=== PATIENT | male | born 1985 | race Caucasian/White ===

== ENCOUNTER 2017-02-09 16:35 | Inpatient (IN) | payer SELFPAY ==
--- NOTE | ~2017-02-09 | CT16 ---
[facility] A Service of [facility] / [facility] RADIOLOGY TEXT RESULTS PATIENT: BEAR MURILLO LOCATION: [place] [address] : [birth year] UNIT #: [id number] AGE: [address]: Emily Monae MD SEX: M ORDER DR: [id number] [place] [id number] I MR#: [id number] Acc #: [id number] NAME: BEAR MURILLO. : 1985 SEX: M STUDY DATE/TIME: 02/09/2017 17:53 UNIT: SEDOF ROOM: [facility] STUDY DESCRIPTION: CT Angio Chest for PE Attending Physician: Blaze Carrillo M.D. Ordering Physician: Physician Non-Staff Primary Care Physician: Primary Care Physician No MEDICAL IMAGING REPORT This report is preliminary unless electronic signature is present. EXAM Chest CTA 02/09 INDICATIONS Chest pain and dizziness that started at 8:00 a.m. this morning. Bilateral arm numbness. TECHNIQUE Axial images were obtained through the chest following IV contrast administration. 3-D reformats were obtained. No comparison CT scan. The CT exam was performed with one or more of the following radiation dose reduction techniques: automatic exposure control, adjustment of mA and/or kV according to patient size, and iterative reconstruction. FINDINGS There is no pulmonary embolism or aortic dissection. There is no pleural or pericardial effusion. There is no adenopathy. There is some calcified granulomatous lymph nodes in the right hilum and right paratracheal space. The lungs are clear except for a right upper lobe calcified granuloma. The upper abdomen is unremarkable. IMPRESSION No pulmonary embolism or aortic dissection. No active disease in the chest. Dictated by... Mahendra Cano Jr., M.D. THIS IS AN ELECTRONICALLY VERIFIED REPORT [facility] A Service [facility] RADIOLOGY TEXT RESULTS PATIENT: BEAR MURILLO LOCATION: [facility] : [birth year] UNIT #: [id number] AGE: [address]: Emily Monae MD SEX: M ORDER DR: Mahendra Cano Jr., M.D. at 02/10/2017 1:41 PM SMITHA/jt TD: 02/10/2017 10:05 JOB #: [id number] MEDICAL IMAGING REPORT Page 1 of 1
--- NOTE | ~2017-02-09 | DS ---
Unit #: [id number] #: [id number] Patient: BEAR MURILLO [id number] [address] [address] [id number] I MR#: [id number] NAME: BEAR MURILLO ROOM: 559 Age: 31 Sex: M Admission Date: 02/09/2017 : 1985 Discharge Date: 02/12/2017 Attending Physician: Emily Monae M.D. DISCHARGE SUMMARY PRIMARY CARE PROVIDER None. PRINCIPAL DIAGNOSES 1. Naj-YT-nwfomgw elevation myocardial infarction. 2. Coronary artery disease with 100% stenosis of right coronary artery, status post stenting and 60% to 70% stenosis of the mid left circumflex. 3. Hyperlipidemia. 4. Reactive leukocytosis, resolved. 5. Reperfusion premature ventricular contractions, resolved. 6. Obesity. CONSULTANTS Dr. Boone, cardiology. PROCEDURES 1. Left-sided heart catheterization on 02/10/2017 with normal left ventricular function. Left main and LAD were normal. Left circumflex had 60% to 70% stenosis in the mid-region and RCA had 100% stenosis, status post stent placement. 2. Chest x-ray on 02/09/2017, which was normal. 3. CT angiogram of the chest on 02/09/2017, which was negative for PE or dissection. No other acute findings noted. CLINICAL HISTORY AND HOSPITAL COURSE Mr. Murillo is a very nice 31-year-old male with a family history of premature coronary artery disease, who presents to the emergency department with a several-day history of chest pain. Please refer to H and P for further details. EKG in the emergency department was unremarkable. However, initial troponin was elevated at 1.10 consistent with NSTEMI. The patient was placed on appropriate medical therapy and subsequently admitted. Dr. Boone was consulted. The following morning, troponin increased to 4.69. The patient subsequently underwent heart catheterization and stenting of the right coronary artery. Post-procedure, the patient initially did have some significant PVCs secondary to reperfusion, but this has resolved. He is now chest pain free. Plan is to treat medically for the next 6 to 8 weeks and he will have an outpatient Cardiolite to determine whether stenting of the lesion of the mid-left circumflex is necessary. The patient did have significant hyperlipidemia with an LDL of 184 and has Unit #: [id number] #: [id number] Patient: BEAR MURILLO been placed on statin therapy. The patient has otherwise remained stable. He is not diabetic with a hemoglobin A1c of 5.3 and he has been counseled regarding diet. He has also had cardiac rehab arranged. The patient was also placed on lisinopril due to his recent NSTEMI, but unfortunately developed some recurrent hypotension. I have decreased dose of lisinopril and this will have to be followed up closely as an outpatient. DISCHARGE CONDITION Stable. DISCHARGE STATUS Discharged to home. DISCHARGE MEDICATIONS Lipitor 80 mg at bedtime; lisinopril 5 mg half a tablet p.o. daily; aspirin 81 mg daily; Brilinta 90 mg b.i.d. DISCHARGE INSTRUCTIONS The patient was instructed to follow a heart healthy diet. He can increase his activity as tolerated. FOLLOWUP The patient will follow up with Dr. Boone as instructed and again plans for Cardiolite in approximately 6 to 8 weeks to determine the need for stenting of the left circumflex lesion. He will need to follow up with lipid panel in 3 months as well. Dictated by... Alice Valdez/bear TD: 02/13/2017 03:56 JOB #: [id number] DISCHARGE SUMMARY Page 1 of 1 X Emily Monae MD X DISCHARGE SUMMARY
--- NOTE | ~2017-02-09 | EKG ---
PATIENT: BEAR MURILLO UNIT #: [id number] Ventricular Rate: 62 BPM Atrial Rate: 62 BPM P-R Interval: 154 ms QRS Duration: 90 ms Q-T Interval: 392 ms QTC Calculation(Bezet): 397 ms P [place]: 25 degrees Calculated R [place]: 41 degrees Calculated T [place]: 10 degrees Diagnosis Line: Normal sinus rhythm with sinus arrhythmia Diagnosis Line: Normal ECG Diagnosis Line: When compared with ECG of 10-FEB-2017 13:30, Diagnosis Line: (unconfirmed) Diagnosis Line: Inverted T waves have replaced nonspecific T wave Diagnosis Line: abnormality in Inferior leads Diagnosis Line: Confirmed by JANY WILBURN MD ([id number]) on 02/12/2017 Diagnosis Line: 7:43:45 AM INTERPRETING MD: COSMO MILLER
--- NOTE | ~2017-02-09 | EKG ---
PATIENT: BEAR MURILLO UNIT #: [id number] Ventricular Rate: 80 BPM Atrial Rate: 80 BPM P-R Interval: 158 ms QRS Duration: 88 ms Q-T Interval: 368 ms QTC Calculation(Bezet): 424 ms P [place]: 38 degrees Calculated R [place]: 63 degrees Calculated T [place]: 35 degrees Diagnosis Line: Normal sinus rhythm Diagnosis Line: Inferior infarct Posterior infarct Diagnosis Line: Abnormal ECG Diagnosis Line: When compared with ECG of 10-FEB-2017 07:50, Diagnosis Line: No significant change was found Diagnosis Line: Confirmed by JANY WILBURN MD ([id number]) on 02/12/2017 Diagnosis Line: 7:39:53 AM INTERPRETING MD: COSMO MILLER
--- NOTE | ~2017-02-09 | EKG ---
PATIENT: BEAR MURILLO UNIT #: [id number] Ventricular Rate: 71 BPM Atrial Rate: 71 BPM P-R Interval: 158 ms QRS Duration: 90 ms Q-T Interval: 384 ms QTC Calculation(Bezet): 417 ms P [place]: 33 degrees Calculated R [place]: 63 degrees Calculated T [place]: 37 degrees Diagnosis Line: Normal sinus rhythm Diagnosis Line: inferoposterior NE Diagnosis Line: When compared with ECG of 09-FEB-2017 21:51, Diagnosis Line: (unconfirmed) Diagnosis Line: No significant change was found Diagnosis Line: Confirmed by JANY WILBURN MD ([id number]) on 02/12/2017 Diagnosis Line: 7:36:51 AM INTERPRETING MD: COSMO MILLER
--- NOTE | ~2017-02-09 | CO ---
Unit #: [id number] #: [id number] Patient: BEAR MURILLO [id number] [place] [id number] [facility]. [place], [place] [address] [id number] I MR#: [id number] NAME: BEAR MURILLO ROOM: 559 Age: 31 Sex: M Admission Date: 02/09/2017 : 1985 Attending Physician: Emily Monae M.D. CONSULTATION REPORT REASON FOR CONSULTATION Elevated troponin and chest pain. HISTORY OF PRESENT ILLNESS This is a very pleasant 31-year-old male with no prior cardiac history and no significant medical history. The patient was transferred from [facility] Emergency Department secondary to chest pain. He states he was in his typical state of health until approximately 2 days ago when the patient started to have complaints of substernal anterior chest pressure described as tightness with radiation to the bilateral arms and some associated numbness. He states the episodes have been lasting approximately 5 to 10 minute and were occurring while he was at work. He works as an electrician journeyman wireman. He states yesterday, however, the episode became more intense, lasted longer and it scared him; therefore, prompted him to seek evaluation at the emergency room. On initial presentation to the ER, he was given aspirin. CTA of the chest was negative for any pulmonary embolus or aortic dissection. Blood pressure was noted to be borderline low and he did receive some IV fluids. It appears initial troponin was indeterminate at 0.07 and repeat of 0.15. The patient's troponin last night was 1.10 and peaked this morning at 4.69. At present, he is resting in bed, his mother is at bedside. He is currently on heparin drip and receiving IV fluids. Denies any current complaints of chest pain. He has nitroglycerin paste to his anterior chest wall. Repeat EKG today shows Q waves present in inferior leads, cannot rule out inferior DE, no acute ischemic changes noted. The patient does have risk factors for coronary artery disease which include premature coronary artery disease in his family, father had an DE in his 30s and mother also has a history of coronary artery disease with stents. PAST MEDICAL HISTORY No significant past medical history. PAST SURGICAL HISTORY Appendectomy and laparoscopic right inguinal hernia repair. ALLERGIES No known drug allergies. HOME MEDICATIONS None. FAMILY HISTORY Unit #: [id number] #: [id number] Patient: BEAR MURILLO Coronary artery disease premature in his father at age 37, also history of atrial fibrillation in his father as well as permanent pacemaker placement. Mother has known coronary artery disease with stents in her 50s. SOCIAL HISTORY The patient is engaged. He has children. He works as an electrician journeyman wireman. He is a lifelong nonsmoker. Denies any illicit drugs or alcohol use. REVIEW OF SYSTEMS Negative for everything except for what was stated in the HPI. PHYSICAL EXAMINATION VITAL SIGNS: Temperature 97.9, respiratory rate 18 to 20, pulse is 60, does have episodes of bradycardia into the 40s which appeared to be occurring with sleep, blood pressure 90/55 to 94/50. BMI is 28. GENERAL: This is a pleasant young male, in no acute distress. Mother is at bedside. HEENT: Pupils are equal and round. Mucous membranes are moist. NECK: Trachea is midline. No lymphadenopathy. No thyromegaly. No JVD. Carotid upstrokes are normal. CARDIOVASCULAR: S1, S2. No murmurs, gallops, or rubs. LUNGS: Clear to auscultation. No adventitious breath sounds. No rales, no rhonchi, no wheezes. ABDOMEN: Soft, nontender, nondistended. Bowel sounds are present. EXTREMITIES: Pulses are palpable. No clubbing, cyanosis, or edema. DIAGNOSTIC STUDIES IMAGING STUDIES: Chest x-ray shows no active disease. CTA of the chest shows no PE or aortic dissection. CARDIOVASCULAR STUDIES: EKG; normal sinus rhythm, 64 beats per minute, QTc interval of 408 msec. Repeat EKG shows Q waves in inferior leads, cannot rule out DE, no acute ischemic changes noted. IMPRESSION 1. Non-ST elevated myocardial infarction with peak troponin thus far of 4.69, Q waves present on EKG, cannot rule out inferior wall myocardial infarction. 2. Family history of premature coronary artery disease in his father in his 30s. PLAN The patient has ruled in for non-ST elevated DE. His troponin has peaked thus far at 4.69. Repeat EKG this morning shows normal sinus rhythm. With Q waves present in inferior leads, no acute ischemic changes present. He is currently chest pain-free, he is on normal saline for as well as heparin drip. The patient has been started on aspirin as well as nitrate therapy. He has not been started on beta-braeden therapy secondary to some issues with bradycardia, heart rate dipping into the 40s with sleep. We will bolus him with 180 mcg/kg of Integrilin and start him on Integrilin drip in addition to his current heparin drip. He has been seen and evaluated by Dr. Boone and needs an urgent cardiac catheterization today. Risk and benefits have been explained to both the patient and his mother, and he is agreeable and willing to proceed. We will also give him high-dose statin therapy and continue his topical nitrates. Further recommendations to follow pending the outcome of cardiac catheterization. Unit #: [id number] #: [id number] Patient: BEAR MURILLO Dictated by... Mansi Up A.P.R.N. for Wale Boone M.D. LMW/modl TD: 02/11/2017 09:04 JOB #: [id number] CONSULTATION REPORT Page 1 of 1 X Mansi Up APRN X CONSULTATION REPORT
--- NOTE | ~2017-02-09 | EKG ---
PATIENT: BEAR MURILLO UNIT #: [id number] Ventricular Rate: 59 BPM Atrial Rate: 59 BPM P-R Interval: 156 ms QRS Duration: 90 ms Q-T Interval: 398 ms QTC Calculation(Bezet): 394 ms P [place]: 26 degrees Calculated R [place]: 56 degrees Calculated T [place]: 48 degrees Diagnosis Line: Sinus bradycardia Diagnosis Line: Inferior infarct Diagnosis Line: Posterior infarct Diagnosis Line: Abnormal ECG Diagnosis Line: When compared with ECG of 10-FEB-2017 12:20, Diagnosis Line: No significant change was found Diagnosis Line: Confirmed by JANY WILBURN MD ([id number]) on 02/12/2017 Diagnosis Line: 7:40:26 AM INTERPRETING MD: COSMO MILLER
--- NOTE | ~2017-02-09 | EKG ---
PATIENT: BEAR MURILLO UNIT #: [id number] Ventricular Rate: 49 BPM Atrial Rate: 49 BPM P-R Interval: 148 ms QRS Duration: 86 ms Q-T Interval: 410 ms QTC Calculation(Bezet): 370 ms P [place]: 43 degrees Calculated R [place]: 74 degrees Calculated T [place]: 49 degrees Diagnosis Line: Marked sinus bradycardia with marked sinus Diagnosis Line: arrhythmia Diagnosis Line: Abnormal ECG Diagnosis Line: No previous ECGs available Diagnosis Line: Confirmed by MERRY WHALEN MD ([id number]) on Diagnosis Line: 03/11/2017 7:06:34 AM INTERPRETING MD: SEVEN
--- NOTE | ~2017-02-09 | EKG ---
PATIENT: BEAR MURILLO UNIT #: [id number] Ventricular Rate: 64 BPM Atrial Rate: 64 BPM P-R Interval: 160 ms QRS Duration: 88 ms Q-T Interval: 396 ms QTC Calculation(Bezet): 408 ms P [place]: 25 degrees Calculated R [place]: 66 degrees Calculated T [place]: 35 degrees Diagnosis Line: Normal sinus rhythm with sinus arrhythmia Diagnosis Line: Normal ECG Diagnosis Line: No previous ECGs available Diagnosis Line: Confirmed by JANY WILBURN MD ([id number]) on 02/12/2017 Diagnosis Line: 7:34:48 AM INTERPRETING MD: COSMO MILLER
--- NOTE | ~2017-02-09 | HP ---
Unit #: [id number] #: [id number] Patient: BEAR MURILLO [id number] [address] [place], [place] [address] [id number] I MR#: [id number] NAME: BEAR MURILLO. ROOM: 559 Age: 31 Sex: M Admission Date: 02/09/2017 : 1985 Attending Physician: Blaze Carrillo M.D. Primary Care Physician: No Primary Care Physician HISTORY AND PHYSICAL CHIEF COMPLAINT Chest pain. HISTORY This pleasant healthy 31-year-old male was transferred from [facility] emergency department for chest pain. The patient states that he was well until three days prior to admission when he began to note intermittent chest discomfort with radiation to the arms, associated with some dizziness and diaphoresis. Yesterday he had chest discomfort throughout the entire day, radiating to his arms, associated with dizziness, blurred vision and diaphoresis. He presented to [facility] emergency department with stable vital signs. He was given aspirin. CTA of the chest was negative. Initial troponin was indeterminate and a call was also made to cardiology. Cardiology asked that medicine admit. He was brought to this facility where his initial blood pressure was somewhat low but is improving after IV fluids. En route he appeared to be in an idioventricular rhythm. As I am speaking with him currently, his arm discomfort has improved but he is still having some mild chest pressure. EKG is normal. Current troponin is 1.1. CAD risk factors include premature coronary artery disease in the family. PAST MEDICAL HISTORY 1. Appendectomy. 2. Laparoscopic right inguinal hernia repair. ALLERGIES None. HOME MEDICATIONS None. FAMILY HISTORY Premature coronary artery disease. SOCIAL HISTORY The patient lives with his fiancee and four children. He works as an service electrician. He is a lifelong nonsmoker and does not drink alcohol. REVIEW OF SYSTEMS Notable for chest pressure, dizziness, lightheadedness, diaphoresis, above mentioned surgeries. All other systems were reviewed and are negative. Unit #: [id number] #: [id number] Patient: BEAR MURILLO PHYSICAL EXAMINATION GENERAL: Pleasant 31-year-old male who currently is in no acute distress. VITAL SIGNS: Temperature 97.9, pulse 71, respirations 18, blood pressure did drop to 83/49, currently blood pressure is 96/54. HEENT: Eyes - PERRLA. Extraocular muscles are intact. Pharynx is benign. NECK: Supple without adenopathy or thyromegaly. CHEST: Clear. CARDIAC: Normal S1 and S2 without S3, S4 or murmur. ABDOMEN: Bowel sounds are present. No hepatosplenomegaly, tenderness, or masses. EXTREMITIES: Without clubbing, cyanosis or edema. Pedal pulses are present. NEUROLOGIC: Patient is awake, alert, and oriented. Cranial nerves are intact. Equal strength throughout. DIAGNOSTIC STUDIES ADMISSION LABS: Hematocrit is 43.1, white blood count 14.1, normal platelet count. Coags are pending. SMA 12 - glucose 133, protein 8.5, AST 91, ALT 67. Initial troponin was 0.07, second troponin 0.15, current troponin is 1.1. Normal lactic acid level and TSH. Urinalysis negative. IMAGING STUDIES: Negative chest x-ray. CTA of the chest is negative for PE. CARDIOLOGY STUDIES: EKG shows a normal sinus rhythm with sinus arrhythmia rate 64, normal appearing. ASSESSMENT What appears to be a non ST elevation [place]. Patient has a normal EKG. PLANS 1. Cardiology has been called. 2. Aspirin, heparin drip and nitropaste if patient is able to tolerate. 3. Serial cardiac enzymes. 4. Repeat labs in the morning. 5. IV fluids. 6. Keep patient NPO for now. 7. Will ask nurses to again call cardiology for any chest pain or abnormal troponins. 1. Dictated by Alice Quintana/kena TD: 02/10/2017 07:23 JOB #: [id number] Unit #: [id number] #: [id number] Patient: BEAR MURILLO HISTORY AND PHYSICAL Page 1 of 1 X Millicent Mcintosh MD HISTORY AND PHYSICAL
--- NOTE | ~2017-02-09 | CR72 ---
[facility]. [facility] A Service of [facility] & [facility] RADIOLOGY TEXT RESULTS PATIENT: BEAR MURILLO LOCATION: [facility] 559-01 : [birth year] UNIT #: [id number] AGE: [address]: Emily Monae MD SEX: M ORDER DR: [id number] [place] [id number] I MR#: [id number] Acc #: [id number] NAME: BEAR MURILLO : 1985 SEX: M STUDY DATE/TIME: 02/09/2017 16:26 UNIT: SEDOF ROOM: [facility] STUDY DESCRIPTION: CR Chest Single View Portable Attending Physician: Blaze Carrillo M.D. Ordering Physician: Physician Non-Staff Primary Care Physician: Primary Care Physician No MEDICAL IMAGING REPORT This report is preliminary unless electronic signature is present. EXAM Portable chest, 02/09 INDICATION Chest pain and bilateral arm numbness that started at 8 o'clock this morning. Midline chest pressure. FINDINGS A single AP portable view of the chest shows both lungs to be clear. The heart is normal in size. The mediastinal contour is normal. No significant bone abnormalities are seen. IMPRESSION Normal portable chest. Dictated by... Mahendra Cano Jr., M.D. THIS IS AN ELECTRONICALLY VERIFIED REPORT Mahendra Cano Jr., M.D. at 02/10/2017 1:38 PM SMITHA/kahlil TD: 02/10/2017 08:02 JOB #: [id number] MEDICAL IMAGING REPORT Page 1 of 1
[~2017-02-09 16:35] MED LIST: AUGMENTIN875 M1 PO; LORTAB 5/500 TA1 TA1 PO; LORTAB 7.5-5001 TAB PO; NO HOME MEDS; NO MEDICATIONS; PERCOCET 7.5-31 EACH PO; TOBREX5 ML OP
[2017-02-09 16:50] LABS: BASOPHIL# 0.1 X10e3 (0-0.3); BASOPHIL% 0.4 % (0-2.5); EOSINOPHIL% 0.1 % (0.0-7.0); HEMOGLOBIN 16.1 gm/dL (13.0-16.0); LYMPHOCYTE% 12.7 % (17.0-45.0); MEAN CELL VOLUME 87.4 FL (83-96); MEAN CORPUSCULAR HEMOGLOBIN 29.3 PG (28-34); MEAN CORPUSCULAR HGB CONC 33.5 g/dL (30-36); MEAN PLATELET VOLUME 8.7 FL (6.5-11.5); MONOCYTE# 0.5 X10e3 (0-1.0); MONOCYTE% 3.2 % (3.0-12.0); NEUTROPHIL# 13.1 X10e3 (1.5-7.1); NEUTROPHIL% 83.6 % (40-75); PLATELET COUNT 318 X10e3 (140-420); RED BLOOD COUNT 5.49 X10e (3.90-5.60); RED CELL DISTRIBUTION WIDTH 13.1 % (11.0-15.5); WHITE BLOOD COUNT 15.7 X10e3 (4.0-10.5)
[2017-02-09 16:53] LABS: DIFF IND NO
[2017-02-09 17:06] LABS: POC - CKMB 2.4 ng/mL (0.0-7.9); POC - TROPONIN 0.07 ng/mL (<=0.05)
[2017-02-09 17:10] LABS: ALBUMIN SERUM 4.9 g/dL (3.5-5.0); ALKALINE PHOSPHATASE 59 U/L (32-92); ALT (SGPT) 67 U/L (10-40); AST (SGOT) 91 U/L (10-42); BILIRUBIN, DIRECT 0.1 mg/dL (0.0-0.2); BILIRUBIN,INDIRECT 0.5 mg/dL (0.0-0.9); BILIRUBIN,TOTAL 0.6 mg/dL (0.2-2.0); BLOOD UREA NITROGEN 18 mg/dL (9-23); CALCIUM SERUM 9.6 mg/dL (8.4-10.2); CARBON DIOXIDE 27 mmol/L (22-31); CHLORIDE 104 mmol/L (100-111); CREATININE SERUM 0.9 mg/dL (0.6-1.4); GLOM FILT RATE Estimated ABOVE60 mL/min (>60); GLUCOSE FASTING 133 mg/dL (70-110); POTASSIUM 3.6 mmol/L (3.5-5.1); PROTEIN TOTAL SERUM 8.5 g/dL (6.0-8.3); SODIUM 136 mmol/L (135-145)
[2017-02-09 17:58] LABS: URINE SOURCE CLEAN CATCH
[2017-02-09 18:00] LABS: URINE APPEARANCE CLEAR; URINE BILIRUBIN NEG (NEG); URINE BLOOD NEG (NEG); URINE COLOR YELLOW; URINE GLUCOSE 50 MG/DL (NORM); URINE KETONE NEG (NEG); URINE LEUKOCYTE ESTERASE NEG (NEG); URINE NITRATE NEG (NEG); URINE PH 5.5 (5-8); URINE PROTEIN NEG (NEG); URINE SPECIFIC GRAVITY 1.025 (1.003-1.035); URINE UROBILINOGEN 0.2 MG/DL (NORM)
[2017-02-09 18:02] LABS: MICRO INDICATED? NO
[2017-02-09 19:28] LABS: POC - CKMB 4.7 ng/mL (0.0-7.9)
[2017-02-09 19:29] LABS: POC - TROPONIN 0.15 ng/mL (<=0.05)
[2017-02-09 22:43] LABS: HEMATOCRIT 43.1 % (38.0-50.0); HEMOGLOBIN 14.2 gm/dL (13.0-16.0); MEAN CELL VOLUME 88.2 FL (83-96); MEAN CORPUSCULAR HGB CONC 32.9 g/dL (30-36); MEAN PLATELET VOLUME 8.9 FL (6.5-11.5); RED BLOOD COUNT 4.89 X10e (3.90-5.60); RED CELL DISTRIBUTION WIDTH 13.3 % (11.0-15.5); WHITE BLOOD COUNT 14.1 X10e3 (4.0-10.5)
[2017-02-09 23:34] LABS: %MB 7.3 % (0.0-4.0); MB 20.2 ng/ml
[2017-02-10 02:15] LABS: PARTIAL THROMBOPLASTIN TIME 25.7 SECONDS (23.5-31.3)
[2017-02-10 04:26] LABS: BASOPHIL# 0.1 X10e3 (0-0.3); BASOPHIL% 0.6 % (0-2.5); DIFF IND NO; EOSINOPHIL# 0.1 X10e3 (0-0.7); EOSINOPHIL% 0.5 % (0.0-7.0); HEMATOCRIT 42.3 % (38.0-50.0); LYMPHOCYTE# 3.9 X10e3 (1.0-3.5); MEAN CELL VOLUME 88.2 FL (83-96); MEAN CORPUSCULAR HEMOGLOBIN 29.2 PG (28-34); MEAN CORPUSCULAR HGB CONC 33.1 g/dL (30-36); MEAN PLATELET VOLUME 8.6 FL (6.5-11.5); MONOCYTE% 7.7 % (3.0-12.0); NEUTROPHIL# 7.5 X10e3 (1.5-7.1); NEUTROPHIL% 60.2 % (40-75); PLATELET COUNT 280 X10e3 (140-420); RED CELL DISTRIBUTION WIDTH 13.2 % (11.0-15.5); WHITE BLOOD COUNT 12.5 X10e3 (4.0-10.5)
[2017-02-10 05:18] LABS: %MB 9.3 % (0.0-4.0); MB 44.3 ng/ml
[2017-02-10 06:16] LABS: BLOOD UREA NITROGEN 14 mg/dL (9-23); CARBON DIOXIDE 25 mmol/L (22-31); CHLORIDE 109 mmol/L (100-111); CREATININE SERUM 0.8 mg/dL (0.6-1.4); GLOM FILT RATE Estimated ABOVE60 mL/min (>60); GLUCOSE FASTING 86 mg/dL (70-110); POTASSIUM 3.9 mmol/L (3.5-5.1); SODIUM 139 mmol/L (135-145)
[2017-02-10 07:37] LABS: AMPHETAMINE NEG (NEG); BARBITURATES NEG (NEG); BENZODIAZEPINES NEG (NEG); COCAINE NEG (NEG); MARIJUANA NEG (NEG); OPIATES NEG (NEG); TRICYCLIC ANTIDEPRESSANTS NEG (NEG); U METHADONE NEG (NEG)
[2017-02-10 10:07] LABS: CHOLESTEROL 238 mg/dL (0-200); HDL CHOLESTEROL 35 mg/dL (29-75); LDL/HDL RATIO 5 RATIO (0-4); TRIGLYCERIDES 93 mg/dL (10-160)
[2017-02-10 10:15] LABS: LDL CHOLESTEROL 184 mg/dL (-130)
[2017-02-10 21:18] LABS: ANGIO %MB 7.6 % (0.0-4.0); ANGIO MB 26.4 ng/ml
[2017-02-11 04:50] LABS: HEMATOCRIT 40.9 % (38.0-50.0); HEMOGLOBIN 13.8 gm/dL (13.0-16.0); MEAN CELL VOLUME 87.7 FL (83-96); MEAN CORPUSCULAR HEMOGLOBIN 29.6 PG (28-34); MEAN CORPUSCULAR HGB CONC 33.7 g/dL (30-36); MEAN PLATELET VOLUME 8.4 FL (6.5-11.5); RED BLOOD COUNT 4.67 X10e (3.90-5.60); RED CELL DISTRIBUTION WIDTH 13.5 % (11.0-15.5); WHITE BLOOD COUNT 9.6 X10e3 (4.0-10.5)
[2017-02-11 05:49] LABS: BLOOD UREA NITROGEN 12 mg/dL (9-23); CALCIUM SERUM 8.7 mg/dL (8.4-10.2); CARBON DIOXIDE 25 mmol/L (22-31); CHLORIDE 109 mmol/L (100-111); CHOLESTEROL 208 mg/dL (0-200); GLOM FILT RATE Estimated ABOVE60 mL/min (>60); GLUCOSE FASTING 92 mg/dL (70-110); HDL CHOLESTEROL 31 mg/dL (29-75); LDL/HDL RATIO 5 RATIO (0-4); POTASSIUM 3.9 mmol/L (3.5-5.1); SODIUM 139 mmol/L (135-145); TRIGLYCERIDES 82 mg/dL (10-160)
[2017-02-11 05:51] LABS: LDL CHOLESTEROL 161 mg/dL (-130)
[2017-02-11 06:06] LABS: ANGIO %MB 5.8 % (0.0-4.0)
[2017-02-12] MEDS ORDERED: TYLENOL325 M1 (09:58)
[2017-02-12] MEDS ORDERED: LIPITOR80 MG PO (10:01)
[2017-02-12] MEDS ORDERED: ZESTRIL2.5 M1 PO (10:02)
[2017-02-12] MEDS ORDERED: ASPIRIN81 M2 PO (10:02)
[2017-02-12] MEDS ORDERED: BRILINTA90 MG PO (10:03)
[2017-02-12] MEDS ORDERED: NITROSTAT0.4 MG SL (15:16)
[2017-02-12] MEDS ORDERED: TENORMIN25 MG PO (15:17)
== END 2017-02-12 16:23 | disposition home or self-care (01) | DRG 247 ==
LOC: SED 16:35 → SEDOF 18:30 → C5B 21:56
PROVIDERS: Internal Medicine; Internal Medicine Cardiovascular Disease; Physician Assistant
PROC: 4A023N7 Measurement of Cardiac Sampling and Pressure, Left Heart, Percutaneous Approach (ICD-10-PCS; principal; 2017-02-10)
PROC: 027034Z Dilation of Coronary Artery, One Artery with Drug-eluting Intraluminal Device, Percutaneous Approach (ICD-10-PCS; 2017-02-10)
PROC: B211YZZ Fluoroscopy of Multiple Coronary Arteries using Other Contrast (ICD-10-PCS; 2017-02-10)
PROC: B215YZZ Fluoroscopy of Left Heart using Other Contrast (ICD-10-PCS; 2017-02-10)
DX: I21.4 Non-ST elevation (NSTEMI) myocardial infarction (principal); E78.5 Hyperlipidemia, unspecified; I25.10 Atherosclerotic heart disease of native coronary artery without angina pectoris; Z82.49 Family history of ischemic heart disease and other diseases of the circulatory system; E66.9 Obesity, unspecified; Z90.49 Acquired absence of other specified parts of digestive tract
CPT/HCPCS: 36415; 71010; 71275; 80048; 80061; 80076; 80307; 81003; 82550; 82553; 83036; 83605; 83874; 84443; 84484; 85025; 85027; 85049; 85347; 85610; 85730; 87040; 90688; 93005; 94760; 96360; 96361; 99285; C1725; C1769; C1874; C1887; C1894; J0461; J1327; J1644; J2250; J2370; J3010; Q9967

== ENCOUNTER 2017-05-04 14:08 | Emergency (ER) | payer SELFPAY ==
[~2017-05-04 14:08] MED LIST changes: +ASPIRIN81 M2 PO; +BRILINTA90 MG PO; +LIPITOR80 MG PO; +NITROSTAT0.4 MG SL; +TENORMIN25 MG PO; +TYLENOL325 M1; +ZESTRIL2.5 M1 PO
== END 2017-05-04 15:27 | disposition home or self-care (01) ==
LOC: SED 14:08
DX: S61.011A Laceration without foreign body of right thumb without damage to nail, initial encounter (principal); Z23 Encounter for immunization; I10 Essential (primary) hypertension; E78.00 Pure hypercholesterolemia, unspecified; W45.8XXA Other foreign body or object entering through skin, initial encounter; Y92.009 Unspecified place in unspecified non-institutional (private) residence as the place of occurrence of the external cause
CPT/HCPCS: 12001; 90471; 90715; 99283